=== PATIENT | female | born 1975 | race African-American/Black ===

== ENCOUNTER 2021-07-10 21:21 | Inpatient (IN) | payer BC, OTHER ==
[~2021-07-10] VITALS: Ht 175.3 cm; Wt 105.2 kg
[2021-07-10] MEDS ORDERED: MAGNESIUM/ALUMINUM HYDROXIDE/SIMETHICONE 30ML UDC PO STA (21:59)
[2021-07-10] MEDS ORDERED: ACETAMINOPHEN 325MG TABLET PO STA (21:59)
[2021-07-10 22:46] LABS: BASOPHILS % 0.6 % (0.0-2.0); EOSINOPHILS % 2.4 % (0.0-5.0); HEMATOCRIT. 37.8 % (36.0-48.0); HEMOGLOBIN. 12.7 g/dL (12.0-16.0); LYMPHOCYTES % 35.2 % (20.0-50.0); MEAN CORPUSCULAR HEMOGLOBIN 27.6 pg (28.0-32.0); MEAN CORPUSCULAR VOLUME 82.4 fL (81.0-99.0); MEAN PLATELET VOLUME 7.4 fl (7.4-10.4); MONOCYTES % 7.2 % (2.0-8.0); NEUTROPHILS % 54.6 % (40.0-76.0); PLATELET 304 x1000/uL (130-400); RED BLOOD CELL COUNT 4.58 mill/uL (4.2-5.4); RED CELL DISTRIBUTION WIDTH 13.4 % (11.6-14.6)
[2021-07-10 22:52] LABS: CHLORIDE 109 mEq/L (98-107)
[2021-07-10 23:03] LABS: HCG SCREEN NEGATIVE
[2021-07-11] MEDS ORDERED: ONDANSETRON HCL 4MG/2ML INJ IV ONE
[2021-07-11] MEDS ORDERED: MORPHINE SULFATE 4 MG/ML CPJ (NOT FOR IM USE) IV ONE
[2021-07-11] MEDS ORDERED: MAGNESIUM/ALUMINUM HYDROXIDE/SIMETHICONE 30ML UDC PO PRN (03:45)
[2021-07-11] MEDS ORDERED: ONDANSETRON HCL 4MG/2ML INJ IV PRN (03:45)
[2021-07-11] MEDS ORDERED: LORAZEPAM 2MG/ML CPJ IV PRN (03:45)
[2021-07-11] MEDS ORDERED: ACETAMINOPHEN 325MG TABLET PO PRN (03:45)
[2021-07-11] MEDS ORDERED: IPRATROPIUM/ALBUTEROL 0.5-3(2.5)MG/3ML NEB HHN PRN (03:45)
[2021-07-11] MEDS ORDERED: HYDROCODONE/ACETAMINOPHEN 5/325MG TABLET PO PRN (03:45)
[2021-07-11] MEDS ORDERED: HYDRALAZINE 20MG/ML VIAL IV PRN (03:45)
[2021-07-11] MEDS ORDERED: GUAIFENESIN 200MG/10ML SUGAR FREE UDC PO PRN (03:45)
[2021-07-11 04:00] VITALS: BP 147/89
[2021-07-11] MEDS: ENOXAPARIN 30MG/0.3ML SYR SUBCUT SCH ×2 (04:44→21:23)
[2021-07-11] MEDS: DIPHENHYDRAMINE 50MG/ML VIAL IV PRN ×2 (04:45→21:47)
[2021-07-11] MEDS: SODIUM CHLORIDE 0.9% INJ 3ML FLUSH IVF SCH ×3 (04:45→21:23)
[2021-07-11] MEDS ORDERED: NALOXONE HCL 0.4MG/ML VIAL IV PRN (04:45)
[2021-07-11] MEDS: DOCUSATE SODIUM 100MG CAPSULE PO PRN (04:45)
[2021-07-11] MEDS: MORPHINE SULFATE 2 MG/ML CPJ (NOT FOR IM USE) IV PRN ×3 (04:54→21:48)
[2021-07-11 08:00] VITALS: BP 143/88
[2021-07-11] MEDS: SODIUM CHLORIDE 0.45% 1,000 ML IV SCH ×2 (11:39→21:23)
[2021-07-11 12:00] VITALS: BP 139/92
[2021-07-11 16:00] VITALS: BP 140/86
[2021-07-11 17:13] LABS: CLARITY URINE CLEAR (CLEAR); COLOR URINE YELLOW (YELLOW); KETONES URINE NEGATIVE (NEGATIVE); LEUKOCYTE ESTERASE URINE NEGATIVE (NEGATIVE); NITRITE URINE NEGATIVE (NEGATIVE); OCCULT BLOOD URINE NEGATIVE (NEGATIVE); PH URINE 5.5 (4.5-8.0); PROTEIN URINE NEGATIVE (NEGATIVE); SPECIFIC GRAVITY URINE 1.025 (1.005-1.030)
[2021-07-11 17:23] LABS: *AMPHETAMINES SCREEN URINE NEGATIVE (NEGATIVE); *BARBITURATES SCREEN URINE NEGATIVE (NEGATIVE); *BENZODIAZEPINES SCREEN URINE NEGATIVE (NEGATIVE)
[2021-07-11 17:24] LABS: *COCAINE SCREEN URINE NEGATIVE (NEGATIVE); CANNABINOID URINE SCREEN NEGATIVE (NEGATIVE); METHADONE URINE SCREEN NEGATIVE (NEGATIVE); PHENCYCLIDINE URINE SCREEN NEGATIVE (NEGATIVE)
[2021-07-11 17:26] LABS: OPIATES URINE SCREEN PRESUMTIVE POSITIVE (NEGATIVE)
[2021-07-11 20:00] VITALS: BP 138/80
[2021-07-12] VITALS: BP 131/81
[2021-07-12] MEDS: MORPHINE SULFATE 2 MG/ML CPJ (NOT FOR IM USE) IV PRN ×4 (01:22→22:24)
[2021-07-12 04:00] VITALS: BP 130/84
[2021-07-12] MEDS: SODIUM CHLORIDE 0.9% INJ 3ML FLUSH IVF SCH ×3 (05:17→22:24)
[2021-07-12 08:00] VITALS: BP 123/81
[2021-07-12 08:27] LABS: BASOPHILS % 0.4 % (0.0-2.0); EOSINOPHILS % 2.8 % (0.0-5.0); HEMATOCRIT. 39.5 % (36.0-48.0); HEMOGLOBIN. 13.2 g/dL (12.0-16.0); LYMPHOCYTES % 29.2 % (20.0-50.0); MEAN CORPUSCULAR HEMOGLOBIN 27.3 pg (28.0-32.0); MEAN CORPUSCULAR VOLUME 81.9 fL (81.0-99.0); MEAN PLATELET VOLUME 7.3 fl (7.4-10.4); MONOCYTES % 5.9 % (2.0-8.0); NEUTROPHILS % 61.7 % (40.0-76.0); PLATELET 322 x1000/uL (130-400); RED BLOOD CELL COUNT 4.83 mill/uL (4.2-5.4); RED CELL DISTRIBUTION WIDTH 13.4 % (11.6-14.6)
[2021-07-12 08:37] LABS: CHLORIDE 106 mEq/L (98-107)
[2021-07-12] MEDS: ENOXAPARIN 30MG/0.3ML SYR SUBCUT SCH ×2 (09:18→20:36)
[2021-07-12 12:00] VITALS: BP 125/80
[2021-07-12] MEDS: SODIUM CHLORIDE 0.45% 1,000 ML IV SCH ×2 (12:24→14:42)
[2021-07-12 16:00] VITALS: BP 123/81
[2021-07-12 20:00] VITALS: BP 142/79
[2021-07-12] MEDS: DOCUSATE SODIUM 100MG CAPSULE PO PRN (20:36)
[2021-07-12] MEDS: DIPHENHYDRAMINE 50MG/ML VIAL IV PRN (22:24)
[2021-07-13] VITALS: BP 135/75
[2021-07-13 04:00] VITALS: BP 129/84
[2021-07-13] MEDS: SODIUM CHLORIDE 0.9% INJ 3ML FLUSH IVF SCH ×3 (05:25→20:35)
[2021-07-13 08:00] VITALS: BP 122/84
[2021-07-13] MEDS: ENOXAPARIN 30MG/0.3ML SYR SUBCUT SCH ×2 (08:04→20:35)
[2021-07-13] MEDS: MORPHINE SULFATE 2 MG/ML CPJ (NOT FOR IM USE) IV PRN ×3 (09:57→21:13)
[2021-07-13 12:00] VITALS: BP 133/79
[2021-07-13] MEDS ORDERED: SENNOSIDES/DOCUSATE SOD 8.6/50MG TABLET PO PRN (14:45)
[2021-07-13] MEDS: SODIUM CHLORIDE 0.45% 1,000 ML IV SCH (15:49)
[2021-07-13 16:00] VITALS: BP 138/88
[2021-07-13 20:00] VITALS: BP 123/87
[2021-07-13] MEDS ORDERED: TRAMADOL 50MG TABLET PO PRN (20:30)
[2021-07-13] MEDS: DEXAMETHASONE 4MG/ML 1ML VIAL IV SCH (21:12)
[2021-07-14] VITALS: BP 128/87
[2021-07-14 04:00] VITALS: BP 143/82
[2021-07-14] MEDS: DIPHENHYDRAMINE 50MG/ML VIAL IV PRN ×2 (04:17→23:35)
[2021-07-14] MEDS: SODIUM CHLORIDE 0.9% INJ 3ML FLUSH IVF SCH ×3 (04:18→21:20)
[2021-07-14] MEDS: SODIUM CHLORIDE 0.45% 1,000 ML IV SCH ×2 (04:18→17:36)
[2021-07-14] MEDS: MORPHINE SULFATE 2 MG/ML CPJ (NOT FOR IM USE) IV PRN ×2 (04:18→20:51)
[2021-07-14 08:00] VITALS: BP 101/90
[2021-07-14] MEDS: DOCUSATE SODIUM SUGAR FREE 100MG/10ML UDC PO SCH (08:14)
[2021-07-14] MEDS: POLYETHYLENE GLYCOL 3350 (17GM) 1 DOSE PACK PO SCH (08:14)
[2021-07-14] MEDS: DEXAMETHASONE 4MG/ML 1ML VIAL IV SCH ×4 (08:14→23:28)
[2021-07-14] MEDS: LIDOCAINE 5% PATCH TOP SCH (08:16)
[2021-07-14 10:02] LABS: BASOPHILS % 0.3 % (0.0-2.0); HEMATOCRIT. 40.7 % (36.0-48.0); HEMOGLOBIN. 13.6 g/dL (12.0-16.0); LYMPHOCYTES % 16.9 % (20.0-50.0); MEAN CORPUSCULAR HEMOGLOBIN 27.5 pg (28.0-32.0); MEAN CORPUSCULAR VOLUME 82.1 fL (81.0-99.0); MEAN PLATELET VOLUME 7.5 fl (7.4-10.4); MONOCYTES % 2.9 % (2.0-8.0); NEUTROPHILS % 79.9 % (40.0-76.0); PLATELET 357 x1000/uL (130-400); RED BLOOD CELL COUNT 4.96 mill/uL (4.2-5.4); RED CELL DISTRIBUTION WIDTH 13.4 % (11.6-14.6)
[2021-07-14 10:14] LABS: CHLORIDE 107 mEq/L (98-107)
[2021-07-14 12:00] VITALS: BP 140/84
[2021-07-14] MEDS ORDERED: LACTULOSE 20G/30ML UDC PO NR (12:45)
[2021-07-14 16:00] VITALS: BP 133/83
[2021-07-14 18:03] LABS: INR 1.1; PROTHROMBIN TIME 11.6 sec (9.6-11.0)
[2021-07-14 20:00] VITALS: BP 154/87
[2021-07-15] VITALS (48 sets, daily range): BP systolic 104–154; BP diastolic 50–89
[2021-07-15] MEDS: MORPHINE SULFATE 2 MG/ML CPJ (NOT FOR IM USE) IV PRN ×2 (05:28→19:56)
[2021-07-15] MEDS: DEXAMETHASONE 4MG/ML 1ML VIAL IV SCH ×4 (06:06→23:26)
[2021-07-15] MEDS: SODIUM CHLORIDE 0.9% INJ 3ML FLUSH IVF SCH ×3 (06:07→22:00)
[2021-07-15] MEDS ORDERED: GENTAMICIN SULF 40MG/ML 2ML VIAL ONE (06:35)
[2021-07-15] MEDS ORDERED: LIDOCAINE HCL/EPINEPHRINE 1%-EPI 1:100,000 20 ML VIAL ONE (06:35)
[2021-07-15] MEDS ORDERED: THROMBIN (BOVINE) 5000 UNITS/VIAL TOP ONE ×2 (06:35→06:36)
[2021-07-15 07:39] LABS: BASOPHILS % 0.1 % (0.0-2.0); HEMATOCRIT. 41.4 % (36.0-48.0); LYMPHOCYTES % 10.8 % (20.0-50.0); MEAN CORPUSCULAR HEMOGLOBIN 27.5 pg (28.0-32.0); MEAN CORPUSCULAR VOLUME 81.2 fL (81.0-99.0); MEAN PLATELET VOLUME 7.6 fl (7.4-10.4); MONOCYTES % 3.7 % (2.0-8.0); NEUTROPHILS % 85.4 % (40.0-76.0); PLATELET 422 x1000/uL (130-400); RED BLOOD CELL COUNT 5.09 mill/uL (4.2-5.4); RED CELL DISTRIBUTION WIDTH 13.4 % (11.6-14.6)
[2021-07-15 07:46] LABS: CHLORIDE 109 mEq/L (98-107)
[2021-07-15] MEDS ORDERED: MORPHINE SULFATE 4 MG/ML CPJ (NOT FOR IM USE) IV PRN (08:00)
[2021-07-15] MEDS ORDERED: ROCURONIUM BROMIDE 10MG/ML VIAL 5ML IV ONE (08:02)
[2021-07-15] MEDS ORDERED: HYDROMORPHONE HCL/PF 2MG/ML (OR) ONE (08:02)
[2021-07-15] MEDS ORDERED: LABETALOL HCL 5MG/ML VIAL 20ML IV ONE ×2 (08:14→10:07)
[2021-07-15] MEDS ORDERED: CEFAZOLIN SODIUM 1000MG/VIAL ONE (08:14)
[2021-07-15] MEDS ORDERED: HYDRALAZINE 20MG/ML VIAL ONE ×3 (08:33→10:07)
[2021-07-15] MEDS: POLYETHYLENE GLYCOL 3350 (17GM) 1 DOSE PACK PO SCH (09:00)
[2021-07-15] MEDS: DOCUSATE SODIUM SUGAR FREE 100MG/10ML UDC PO SCH (09:00)
[2021-07-15] MEDS: LIDOCAINE 5% PATCH TOP SCH (09:00)
[2021-07-15] MEDS ORDERED: ALBUMIN HUMAN 25GM/100ML (25%) IV ONE (09:01)
[2021-07-15] MEDS ORDERED: NEOSTIGMINE METHYLSULFATE 1MG/ML 10 ML VIAL ONE (10:32)
[2021-07-15] MEDS ORDERED: GLYCOPYRROLATE 0.2 MG/ML 2ML VIAL ONE (10:33)
[2021-07-15] MEDS ORDERED: RACEPINEPHRINE 2.25% 0.5ML NEB VIAL HHN NR (10:59)
[2021-07-15] MEDS ORDERED: LABETALOL 5MG/ML SYR 20 MG/4 ML SYRINGE IV PRN (11:00)
[2021-07-15] MEDS ORDERED: HYDROMORPHONE HCL/PF 2MG/ML CPJ IV PRN (11:00)
[2021-07-15] MEDS ORDERED: MEPERIDINE HCL/PF 25MG/ML CPJ IV PRN (11:00)
[2021-07-15] MEDS ORDERED: ONDANSETRON HCL 4MG/2ML INJ IV PRN (11:00)
[2021-07-15] MEDS ORDERED: NALOXONE INJ IV PRN (11:15)
[2021-07-15] MEDS ORDERED: HYDROMORPHONE PCA 10MG/50ML IV PRN (11:15)
[2021-07-15] MEDS ORDERED: DIPHENHYDRAMINE INJ IV PRN (11:15)
[2021-07-15] MEDS ORDERED: LACTULOSE 20G/30ML UDC PO SCH (12:45)
[2021-07-15] MEDS: DEXT 5%/LACTATED RINGERS 1,000 ML IV SCH ×2 (13:27→23:26)
[2021-07-15 13:34] LABS: BG BASE EXCESS -2.3 mmol/L (-2.0-2.0); BG CARBOXYHEMOGLOBIN 0.5 % (0.5-1.5); BG DEOXYHEMOGLOBIN 3.7 % (0.0-5.0); BG FRACTION INSPIRED OXYGEN 50; BG HCO3 ACT 22.6 mmol/L (22.0-26.0); BG METHEMOGLOBIN 0.3 % (0.0-1.5); BG OXYGEN SATURATION 96.3 % (92.0-98.5); BG OXYHEMOGLOBIN 95.5 % (94.0-97.0); BG PCO2 39.8 mmHg (35.0-45.0); BG PH 7.373 (7.350-7.450); BG SAMPLE SITE ALINE; BG TOTAL HEMOGLOBIN 13.5 g/dL (12.0-18.0); BG VENT MODE MASK - SIMPLE
[2021-07-15] MEDS: NICARDIPINE 100 MG in SODIUM CHLORIDE 0.9% 60 ML IV PRN ×2 (13:47→20:36)
[2021-07-15] MEDS ORDERED: CEFAZOLIN SODIUM 1000MG/VIAL IV SCH (14:00)
[2021-07-15] MEDS: CEFAZOLIN 1000MG PREMIX 50 ML IV SCH ×2 (17:36→23:26)
[2021-07-15] MEDS: ONDANSETRON INJ IV PRN (20:04)
[2021-07-16] VITALS (94 sets, daily range): BP systolic 101–202; BP diastolic 54–92
[2021-07-16] MEDS: ONDANSETRON INJ IV PRN ×5 (00:05→18:16)
[2021-07-16] MEDS: MORPHINE SULFATE 2 MG/ML CPJ (NOT FOR IM USE) IV PRN ×7 (00:05→22:48)
[2021-07-16] MEDS: DEXAMETHASONE 4MG/ML 1ML VIAL IV SCH ×4 (05:44→23:05)
[2021-07-16] MEDS ORDERED: NALOXONE HCL 0.4MG/ML VIAL IV PRN (07:30)
[2021-07-16] MEDS: DOCUSATE SODIUM SUGAR FREE 100MG/10ML UDC PO SCH (08:21)
[2021-07-16] MEDS: CEFAZOLIN 1000MG PREMIX 50 ML IV SCH ×2 (08:21→16:04)
[2021-07-16] MEDS: POLYETHYLENE GLYCOL 3350 (17GM) 1 DOSE PACK PO SCH (08:22)
[2021-07-16] MEDS: DEXT 5%/LACTATED RINGERS 1,000 ML IV SCH ×2 (09:16→18:16)
[2021-07-16] MEDS: LIDOCAINE 5% PATCH TOP SCH (12:14)
[2021-07-17] VITALS (81 sets, daily range): BP systolic 93–160; BP diastolic 56–96
[2021-07-17] MEDS: ONDANSETRON INJ IV PRN ×4 (00:19→16:02)
[2021-07-17] MEDS: MORPHINE SULFATE 2 MG/ML CPJ (NOT FOR IM USE) IV PRN ×6 (04:29→20:41)
[2021-07-17] MEDS: DEXAMETHASONE 4MG/ML 1ML VIAL IV SCH ×2 (05:37→11:34)
[2021-07-17] MEDS: DOCUSATE SODIUM SUGAR FREE 100MG/10ML UDC PO SCH ×2 (08:22→09:00)
[2021-07-17] MEDS: LIDOCAINE 5% PATCH TOP SCH (08:23)
[2021-07-17] MEDS: POLYETHYLENE GLYCOL 3350 (17GM) 1 DOSE PACK PO SCH ×2 (08:23→09:00)
[2021-07-17] MEDS: DEXT 5%/LACTATED RINGERS 1,000 ML IV SCH (15:00)
[2021-07-17] MEDS: AMLODIPINE 2.5MG TABLET PO SCH (16:05)
[2021-07-17] MEDS: CLONIDINE 0.1MG TABLET PO PRN (21:02)
[2021-07-18] VITALS (54 sets, daily range): BP systolic 0–156; BP diastolic 0–94
[2021-07-18] MEDS: MORPHINE SULFATE 2 MG/ML CPJ (NOT FOR IM USE) IV PRN ×6 (00:36→17:21)
[2021-07-18] MEDS: DEXT 5%/LACTATED RINGERS 1,000 ML IV SCH ×2 (01:00→11:14)
[2021-07-18] MEDS: NICARDIPINE 100 MG in SODIUM CHLORIDE 0.9% 60 ML IV PRN (06:00)
[2021-07-18] MEDS: CLONIDINE 0.1MG TABLET PO PRN (06:02)
[2021-07-18] MEDS: POLYETHYLENE GLYCOL 3350 (17GM) 1 DOSE PACK PO SCH (08:11)
[2021-07-18] MEDS: DOCUSATE SODIUM SUGAR FREE 100MG/10ML UDC PO SCH (08:11)
[2021-07-18] MEDS: AMLODIPINE 2.5MG TABLET PO SCH (08:13)
[2021-07-18] MEDS: LIDOCAINE 5% PATCH TOP SCH (08:13)
[2021-07-18] MEDS: ONDANSETRON INJ IV PRN (08:25)
== END 2021-07-18 18:30 | disposition short-term general hospital (02) | DRG 471 ==
LOC: ER 21:21 → 8WST 07-11 02:16 → ENRESERV 07-11 02:37 → MICUSO 07-15 12:35 → 5EST 07-18 09:55
PROVIDERS: ADMIT Internal Medicine; ATTEND Internal Medicine
PROC: 5A09357 Assistance with Respiratory Ventilation, Less than 24 Consecutive Hours, Continuous Positive Airway Pressure (ICD-10-PCS; 2021-07-15)
PROC: 0RG10A0 Fusion of Cervical Vertebral Joint with Interbody Fusion Device, Anterior Approach, Anterior Column, Open Approach (ICD-10-PCS; principal; 2021-07-16)
PROC: 0RB30ZZ Excision of Cervical Vertebral Disc, Open Approach (ICD-10-PCS; 2021-07-16)
PROC: 00NW0ZZ Release Cervical Spinal Cord, Open Approach (ICD-10-PCS; 2021-07-16)
PROC: 4A11X4G Monitoring of Peripheral Nervous Electrical Activity, Intraoperative, External Approach (ICD-10-PCS; 2021-07-16)
PROC: 01N10ZZ Release Cervical Nerve, Open Approach (ICD-10-PCS; 2021-07-16)
DX: M47.22 Other spondylosis with radiculopathy, cervical region (principal); G82.54 Quadriplegia, C5-C7 incomplete; M50.023 Cervical disc disorder at C6-C7 level with myelopathy; G95.20 Unspecified cord compression; K57.92 Diverticulitis of intestine, part unspecified, without perforation or abscess without bleeding; I10 Essential (primary) hypertension; K57.90 Diverticulosis of intestine, part unspecified, without perforation or abscess without bleeding; K59.00 Constipation, unspecified; M06.9 Rheumatoid arthritis, unspecified; M48.02 Spinal stenosis, cervical region; Z20.822 Contact with and (suspected) exposure to COVID-19; M25.78 Osteophyte, vertebrae; M32.9 Systemic lupus erythematosus, unspecified; M50.123 Cervical disc disorder at C6-C7 level with radiculopathy; M47.12 Other spondylosis with myelopathy, cervical region; R33.9 Retention of urine, unspecified; R26.89 Other abnormalities of gait and mobility; Z90.49 Acquired absence of other specified parts of digestive tract; Z90.710 Acquired absence of both cervix and uterus; Z88.8 Allergy status to other drugs, medicaments and biological substances; Z79.899 Other long term (current) drug therapy
CPT/HCPCS: 36415; 36600; 71045; 72040; 72141; 72146; 72148; 74176; 76000; 80048; 80053; 80305; 81003; 82375; 82805; 84703; 85025; 86850; 86900; 87426; 88305; 88311; 92610; 93005; 94640; 94660; 95863; 95925; 95926; 95928; 95929; 97161; 97164; 97167; 97530; 99285; C1713; C1893; J0360; J0690; J1100; J1170; J1200; J1580; J1650; J2270; J2310; J2405; J2710; J3490; J7050; J7121; L0172; P9047; A4315; C1762